=== PATIENT | male | born 1985 | race Caucasian/White ===

== ENCOUNTER 2017-01-01 13:24 | Emergency (ER) | payer OTHER | END 2017-01-01 14:30 | disposition home or self-care (01) | LOC: ER 13:24 | DX: M25.561 Pain in right knee (principal); M25.562 Pain in left knee; G89.29 Other chronic pain; M54.9 Dorsalgia, unspecified; Z79.891 Long term (current) use of opiate analgesic; Z79.899 Other long term (current) drug therapy | CPT/HCPCS: 99070; 99282 ==

== ENCOUNTER 2017-02-08 08:47 | Emergency (ER) | payer OTHER | END 2017-02-08 11:15 | disposition home or self-care (01) | LOC: ER 08:47 | DX: F41.9 Anxiety disorder, unspecified (principal); G89.29 Other chronic pain; F17.210 Nicotine dependence, cigarettes, uncomplicated; Z79.891 Long term (current) use of opiate analgesic; Z79.899 Other long term (current) drug therapy | CPT/HCPCS: 99282; 99283 ==